=== PATIENT | female | born 2000 | race Two or more races ===

== ENCOUNTER 2024-06-05 19:12 | Emergency (ER) | payer OTHER ==
[~2024-06-05] VITALS: Ht 160 cm; Wt 71.7 kg
[2024-06-05] MEDS ORDERED: ONDANSETRON HCL 2 MG/ML VIAL IV ONE (20:45)
[2024-06-05] MEDS ORDERED: FAMOtidine 10 MG/ML (4ML VIAL) IV ONE (20:45)
[2024-06-05] MEDS ORDERED: 0.9 % SODIUM CHLORIDE 1,000 ML IV ONE (20:45)
[2024-06-05] MEDS ORDERED: KETOROLAC TROMETHAMINE 30 MG VIAL IU ONE (20:45)
[2024-06-05 21:06] LABS: HEMATOCRIT 33.8 % (36.0-45.00); HEMOGLOBIN 11.2 g/dL (12.0-15.00); MEAN CELL VOLUME 80.5 fL (80.00-100.00); MEAN CORPUSCULAR HEMOGLOBIN 26.6 pg (27.00-32.0); PLATELET COUNT 251 K/uL (150-450); RED CELL DISTRIBUTION WIDTH 14.9 % (11.5-14.5)
[2024-06-05 21:20] LABS: INR 0.99; PARTIAL THROMBOPLASTIN TIME 27.3 SECONDS (22.0-34.0); PROTHROMBIN TIME 10.8 SECONDS (9.0-11.5)
[2024-06-05 21:29] LABS: ALBUMIN 3.7 gm/dL (3.4-5.0); ALKALINE PHOSPHATASE 60 U/L (50-136); ALT/SGPT 22 U/L (12-78); ANION GAP 9 (10.0-20.0); AST/SGOT 26 U/L (15-37); BLOOD UREA NITROGEN 12 mg/dL (7-18); BUN CREA RATIO 17 (7.0-25.0); CALCIUM 9.1 mg/dL (8.5-10.1); CARBON DIOXIDE 29 mEq/L (21-32); CHLORIDE 105 mmol/L (98-107); GLOBULINA 3.6 G/DL (2.4-3.5); GLUCOSE FASTING 102 mg/dL (65-100); OSMOLALITY SERUM 277 MOSM/KG (275-295); POTASSIUM 3.61 mEq/L (3.5-5.1); SODIUM 139 mmol/L (136-145); TOTAL PROTEIN 7.3 gm/dL (6.4-8.2)
[2024-06-05 21:34] LABS: HCG QUANTITATIVE < 1 mUI/mL (1-3)
[2024-06-05 23:27] LABS: PH,URINE 7.5 (5.0-8.0); URINE APPEARANCE Clear; URINE BILIRRUBIN Negative (NEGATIVE); URINE BLOOD Negative; URINE COLOR Yellow; URINE GLUCOSE Negative (NEGATIVE); URINE KETONE Negative (NEGATIVE); URINE LEUKOCYTE Negative; URINE NITRATE Negative; URINE PROTEIN Negative (NEGATIVE); URINE UROBILINOGEN 0.2 E.U./dl
[2024-06-05 23:34] LABS: URINE EPITHELIAL CELLS 38.5 uL (0.0-38.8); URINE WBC 9.9 uL (0.0-23.2)
[2024-06-05 23:36] LABS: URINE RBC 0.4 uL (0.0-20.8)
[2024-06-06] MEDS ORDERED: OxyCODONE HCL/APAP UD (PERCOCET) PO STA (01:18)
== END 2024-06-06 02:39 | disposition home or self-care (01) ==
LOC: ER 19:15
PROVIDERS: General Practice
DX: N94.0 Mittelschmerz (principal); R10.13 Epigastric pain; R11.2 Nausea with vomiting, unspecified; R10.9 Unspecified abdominal pain
CPT/HCPCS: 36415; 74177; Q9965